=== PATIENT | female | born 1950 | race African-American/Black ===

== ENCOUNTER → 2019-05-29 | Day surgery (SDC) | payer MEDICARE ==
[2019-05-28 13:54] LABS: BASOPHILS % 0.6 % (0.0-1.0); EOSINOPHILS # (AUTO) 0.1 (0.0-0.4); EOSINOPHILS % 2.4 % (0.0-6.0); HEMOGLOBIN 12.5 g/dL (12.0-16.0); LYMPHOCYTES # (AUTO) 2.1 (1.0-3.2); LYMPHOCYTES % 42.2 % (18.0-39.1); MEAN CORPUSCULAR HGB CONC 32.1 g/dL (31-35); MEAN CORPUSCULAR VOLUME 93.5 fL (81-99); MONOCYTES # (AUTO) 0.4 (0.2-0.8); MONOCYTES % 7.1 % (4.4-11.3); NEUTROPHILS # (AUTO) 2.4 (2.1-6.9); NEUTROPHILS % 47.3 % (38.7-80.0); PLATELET COUNT 238 x10e3/uL (140-360); RED BLOOD COUNT 4.17 x10e6/uL (3.6-5.1); RED CELL DISTRIBUTION WIDTH 13.3 % (11.7-14.4)
[2019-05-28 14:18] LABS: ANION GAP 17.6 mmol/L (8-16); BLOOD UREA NITROGEN 14 mg/dL (7-26); BUN/CREATININE RATIO 16 (6-25); CALCIUM 9.6 mg/dL (8.4-10.2); CARBON DIOXIDE 23 mmol/L (22-29); CHLORIDE 103 mmol/L (98-107); CREATININE, SERUM 0.86 mg/dL (0.57-1.11); EST GLOMERULAR FILTRATION RATE > 60 ML/MIN (60-); GLUCOSE 109 mg/dL (74-118); POTASSIUM 3.6 mmol/L (3.5-5.1); SODIUM 140 mmol/L (136-145)
--- NOTE | 2019-05-28 15:14 | Diagnostic Imaging Report ---
EXAMINATION: CHEST 2 VIEWS INDICATION: Pre-operative COMPARISON: None FINDINGS: LINES/TUBES:None LUNGS:The lungs are well-inflated. No focal consolidation or pulmonary edema. PLEURA:No pleural effusion or pneumothorax. MEDIASTINUM:The cardiomediastinal silhouette appears normal in size and shape. BONES/SOFT TISSUES:No acute osseous injury. Degenerative changes of the thoracic spine. ABDOMEN:No free air under the diaphragm. IMPRESSION: No focal pneumonia or pulmonary edema. Signed by: Tameka Gaston MD on 05/28/2019 3:10 PM
[~2019-05-29] MED LIST: AMLODIPINE BESY10 MG PO; ATORVASTATIN CA10 MG PO; BUPIVACAINE HCL 0.5% INJ 30 ML VIAL INJ ONE; CEFAZOLIN SOD 1 GM/NS 50ML 100 ML IV ONE; DEXAMETHASONE SOD PHOS INJ 4 MG/ML VIAL ONE; DORZOLAMIDE HCL10 ML OP; ESMOLOL HCL 100MG/10ML 10 MG/ML VIAL ONE; FENTANYL CITRATE/PF 100MCG/2 ML INJ ONE; GABAPENTIN300 MG PO; HYDROCHLOROTHIA25 MG PO; LATANOPROST2.5 ML OP; LEVOTHYROXINE75 MCG PO; LIDOCAINE HCL 2% LOCAL INJ 5 ML SDV VIAL INJ ONE; LISINOPRIL10 MG PO; METFORMIN HCL500 MG PO; METOPROLOL TART25 MG PO; MIDAZOLAM HCL 2 MG/2 ML VIAL ONE; MONTELUKAST SOD10 MG PO; NYSTATIN100000 UNI TOP; ONDANSETRON HCL INJ 2MG/ML 2ML 2 MG/ML VIAL ONE; PANTOPRAZOLE SO40 MG PO; PROMETHAZINE HC25 M1 PO; PROPOFOL IV EMULSION 10 MG/ML 20 ML VIAL ONE; SEVOFLURANE INHAL SOLN 250 ML PEN BTL ONE; VENTOLIN HFA18 GM INH; XARELTO20 MG PO
--- OUTSIDE RECORDS SUMMARY | 2019-05-29 06:21 | XMS REPORT | Clinical Summary ---
Author Author [facility] Organization [facility] Address Unknown Phone Unavailable Care Team Providers Care Seconds Grader Name Role Phone Mila Mendoza MD PCP Unavailable Allergies No Known Allergies Medications End Date Status Medication Sig Dispensed Refills Start Date 05/31/2018 Discontinued cyclobenzaprine Take 1 tablet 20 tablet 0 (FLEXERIL) 10 mg tablet (10 mg total) 8 by mouth 2 (two) times a day as needed for muscle spasms for up to 30 days. 06/30/2018 ibuprofen (ADVIL,MOTRIN) Take 1 tablet 30 tablet 0 600 MG tablet (600 mg 8 total) by mouth every 6 (six) hours as needed for mild pain for up to 30 days. 06/05/2018 traMADol (ULTRAM) 50 mg Take 1 tablet 12 tablet 0 tablet (50 mg total) 8 by mouth every 6 (six) hours as needed for moderate pain for up to 5 days. Active Problems Not on file Encounters Care Team Description Date Type Specialty Mila Mendoza MD Screening breast examination (Primary Dx) 05/16/2019 Transcribe Access Orders Mila Mendoza MD Abnormal mammogram 06/15/2018 Hospital Radiology Encounter Mila Mendoza MD Abnormal mammogram 06/15/2018 Hospital Radiology Encounter Delio Sharma MD Chronic right-sided low back pain with right-sided sciatica (Primary Dx) 05/31/2018 Emergency Emergency Medicine after 05/28/2018 Family History Medical History Relation Name Comments Breast cancer Maternal Aunt Breast cancer Sister Relation Name Status Comments Maternal Aunt Sister Social History Date Tobacco Use Types Packs/Day Years Used Never Smoker Smokeless Tobacco: Never Used Sex Assigned at Date Recorded Not on file Industry Job Start Date Occupation Not on file Not on file Not on file Travel End Travel History Travel Start No recent travel history available. Last Filed Vital Signs Time Taken Vital Sign Reading 05/31/2018 1:50 PM CDT Blood Pressure 161/72 05/31/2018 1:50 PM CDT Pulse 64 05/31/2018 11:05 AM CDT Temperature 36.6 C (97.8 F) 05/31/2018 1:50 PM CDT Respiratory Rate 18 05/31/2018 1:50 PM CDT Oxygen Saturation 99% - Inhaled Oxygen - Concentration 05/31/2018 11:06 AM CDT Weight 90.7 kg (200 lb) 05/31/2018 11:06 AM CDT Height 162.6 cm (5' 4") 05/31/2018 11:06 AM CDT Body Mass Index 34.33 Plan of Treatment Care Team Description Date Type Specialty Mila Mendoza MD [address] [place] [address], [address] [place], [place] [id number] 06/04/2019 Procedure visit Radiology Health Maintenance Due Date Last Done Comments COLONOSCOPY SCREENING 2001 SHINGLES VACCINES (#1) 2001 65+ PNEUMOCOCCAL VACCINE 2016 (1 of 2 - PCV13) INFLUENZA VACCINE 05/30/2019 BREAST CANCER SCREENING 06/15/2020 06/15/2018, 06/15/2018, 06/15/2018, Additional history exists Procedures Comments Procedure Name Priority Date/Time Associated Diagnosis US BREAST COMPLETE LEFT Routine 06/15/2018 Abnormal mammogram 3:00 PM CDT MAMMO DIAGNOSTIC W CAD Routine 06/15/2018 Abnormal mammogram BILATERAL 2:44 PM CDT URINALYSIS SCREEN AND Routine 05/31/2018 MICROSCOPY, WITH REFLEX 12:21 PM CDT TO CULTURE URINE CULTURE Routine 05/31/2018 12:21 PM CDT XR HIP 2-3 VIEWS RIGHT STAT 05/31/2018 12:04 PM CDT after 05/28/2018 Results * US Breast Complete Left (06/15/2018 3:00 PM CDT) Specimen Narrative Performed At PROCEDURE: MAMMO DIAGNOSTIC W CAD BILATERAL, US BREAST COMPLETE [facility] LEFT06/15/2018 2:12 PM This patient's mammogram was interpreted with the assistance of computer-aided detection (CAD). CLINICAL HISTORY:68-year-old female with history of benign left breast surgical excisional biopsy performed in 2016. Patient is being followed for a probably benign mass versus complex cyst within the left breast near excisional biopsy site. COMPARISON:06/20/2017 through 09/17/2013. BREAST DENSITY:There are scattered areas of fibroglandular density. DIGITAL DIAGNOSTIC MAMMOGRAPHY: There are no dominant masses, suspicious microcalcifications or unexplained architectural distortion to suggest malignancy. Changes compatible with surgical excisional biopsy are located within the upper outer left breast at posterior depth. BREAST ULTRASOUND: Complete left breast sonogram, to include scanning of all 4 quadrants, the retroareolar/subareolar region, and axilla was performed by the technologist with close supervision by the radiologist. Sonographic evaluation of the left breast demonstrates a stable hypoechoic mass within the upper outer quadrant, 10 cm from the nipple, measuring up to 0.4 x 0.3 x 0.3 cm. This remains unchanged since 06/20/2017, and will remain classified as probably benign. Remaining left breast and imaged contents within the left axilla are within normal limits. IMPRESSION: BI-RADS Category 3-Probably Benign Findings. 1.Stable probably benign subcentimeter complex cyst versus oval mass near excisional biopsy site, left breast. This is only seen on ultrasound. 2.No mammographic evidence for malignancy within either breast. RECOMMENDATION: Twelve-month follow up is recommended. Patient will be due for bilateral diagnostic mammogram and left breast sonogram in one year. The results of this exam have been sent to the patient. This facility is accredited by [employer] for Mammography. A negative x-ray report should not delay biopsy if a dominant or clinically suspicious mass is present. Not all cancers are identified by x-ray. [id number] Performing Organization Address City/State/Zipcode Phone Number [facility] [address] [place] [address] * Mammo Diagnostic w Cad Bilateral (06/15/2018 2:44 PM CDT) Specimen Narrative Performed At PROCEDURE: MAMMO DIAGNOSTIC W CAD BILATERAL, US BREAST COMPLETE [facility] LEFT06/15/2018 2:12 PM This patient's mammogram was interpreted with the assistance of computer-aided detection (CAD). CLINICAL HISTORY:68-year-old female with history of benign left breast surgical excisional biopsy performed in 2016. Patient is being followed for a probably benign mass versus complex cyst within the left breast near excisional biopsy site. COMPARISON:06/20/2017 through 09/17/2013. BREAST DENSITY:There are scattered areas of fibroglandular density. DIGITAL DIAGNOSTIC MAMMOGRAPHY: There are no dominant masses, suspicious microcalcifications or unexplained architectural distortion to suggest malignancy. Changes compatible with surgical excisional biopsy are located within the upper outer left breast at posterior depth. BREAST ULTRASOUND: Complete left breast sonogram, to include scanning of all 4 quadrants, the retroareolar/subareolar region, and axilla was performed by the technologist with close supervision by the radiologist. Sonographic evaluation of the left breast demonstrates a stable hypoechoic mass within the upper outer quadrant, 10 cm from the nipple, measuring up to 0.4 x 0.3 x 0.3 cm. This remains unchanged since 06/20/2017, and will remain classified as probably benign. Remaining left breast and imaged contents within the left axilla are within normal limits. IMPRESSION: BI-RADS Category 3-Probably Benign Findings. 1.Stable probably benign subcentimeter complex cyst versus oval mass near excisional biopsy site, left breast. This is only seen on ultrasound. 2.No mammographic evidence for malignancy within either breast. RECOMMENDATION: Twelve-month follow up is recommended. Patient will be due for bilateral diagnostic mammogram and left breast sonogram in one year. The results of this exam have been sent to the patient. This facility is accredited by [employer] for Mammography. A negative x-ray report should not delay biopsy if a dominant or clinically suspicious mass is present. Not all cancers are identified by x-ray. [id number] Performing Organization Address City/State/Zipcode Phone Number [facility] [address] [place] [address] * Urinalysis screen and microscopy, with reflex to culture (05/31/2018 12:21 PM CDT) Specimen site Clean catch [facility]OM[facility]IC[facility] Color, UA Yellow [facility] OF [facility]OLOGY AND GENOMIC MEDICINE Appearance, UA Clear [facility] OF [facility]OLOGY AND GENOMIC MEDICINE Specific 1.019 1.001 - 1.035 [facility] gravity, OF PATHOLOGY AND GENOMIC MEDICINE pH, UA 5.0 5.0 - 8.5 [facility] OF PATHOLOGY AND GENOMIC MEDICINE Protein, UA Negative Negative [facility] OF [facility]OLOGY AND GENOMIC MEDICINE Glucose, UA Negative Negative [facility] OF [facility]OLOGY AND GENOMIC MEDICINE Ketones, UA Negative Negative [facility] OF [facility]OLOGY AND GENOMIC MEDICINE Bilirubin, UA Negative Negative [facility] OF [facility]OLOGY AND GENOMIC MEDICINE Blood, UA Negative Negative [facility] OF [facility]OLOGY AND GENOMIC MEDICINE Nitrite, UA Negative Negative [facility] OF [facility]OLOGY AND GENOMIC MEDICINE Urobilinogen, 2.0 (A) <2.0 [facility] UA OF PATHOLOGY AND GENOMIC MEDICINE Leukocyte Negative Negative [facility] esterase, [facility] OF PATHOLOGY AND GENOMIC MEDICINE Epithelial Moderate /HPF [facility] cells, [facility]A OF PATHOLOGY AND GENOMIC MEDICINE WBC, UA 2 0 - 5 /HPF [facility] OF PATHOLOGY AND GENOMIC MEDICINE RBC, UA 2 0 - 5 /HPF [facility] OF PATHOLOGY AND GENOMIC MEDICINE Bacteria, UA None seen None seen [facility] OF PATHOLOGY AND GENOMIC MEDICINE Yeast, UA None seen [facility] OF PATHOLOGY AND GENOMIC MEDICINE Yeast with None seen [facility] pseudohyphae, OF PATHOLOGY UA AND GENOMIC MEDICINE Specimen Urine Performing Organization Address City/[facility] Phone Number [facility] [address] [place] [address] PATHOLOGY AND GENOMIC MEDICINE * Urine culture (05/31/2018 12:21 PM CDT) Urine culture SEE COMMENTComment: [facility] Bacteriuria screen negative. OF PATHOLOGY AND GENOMIC MEDICINE Specimen Urine Performing Organization Address City/[facility] Phone Number [facility] [address] [place] [address] PATHOLOGY AND GENOMIC MEDICINE * XR Hip 2-3 View Right (05/31/2018 12:04 PM CDT) Specimen Narrative Performed At EXAMINATION:XR HIP 2-3 VIEWS RIGHT [facility] CLINICAL HISTORY: hip pain COMPARISON:None. FINDINGS: No acute osseous abnormality is seen. IMPRESSION: As above [facility]-[id number] Procedure Note Interface, Radiology Results Incoming - 05/31/2018 12:22 PM CDT EXAMINATION: XR HIP 2-3 VIEWS RIGHT CLINICAL HISTORY: hip pain COMPARISON: None. FINDINGS: No acute osseous abnormality is seen. IMPRESSION: As above [facility]-[id number] Performing Organization Address City/[facility]/Zipcode Phone Number [facility] [address] [place] [address] after 05/28/2018 Insurance Type Payer Benefit Subscriber ID Effective Phone Address Plan / Dates Group HMO [employer] CIGNA xxxxxxxx [id number] HEALTHSPRI resent NG HMO MCR ADV Medicaid MEDICAID MEDICAID xxxxxxxxx [id number] resent Advance Directives Patient has advance care planning documents on file. For more information, princess huggins contact: Michael Moreira [address] [place] [address]
--- OUTSIDE RECORDS SUMMARY | 2019-05-29 06:21 | XMS REPORT ---
Author Author Admin, [place] [facility] [place] Address Unknown Phone Unavailable Allergies, Adverse Reactions, Alerts Allergy Name Reaction Description Start Date Severity Status Provider BUTORPHANOL TARTRATE Weakness Critical Active Tia Mittal MD Conditions or Problems Problem Name Problem Code Onset Date Status Entry Date Provider Comment Standard Description Annotate Colon Cancer Screening V76.51 Active Marlin Grady Weinerani DO Screening for malignant neoplasms of colon DYSURIA 788.1 Active Rose Marie Garrett MD Dysuria Needs vaccination for influenza V04.81 Active Marlin Grady Blankenship DO Need for prophylactic vaccination and inoculation against influenza Leg cramps, bilateral 729.82 Active Corky Springer MD Cramp of limb Carpal tunnel syndrome 354.0 Active Fracisco Stewart MD Carpal tunnel syndrome Localized, 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 Fitzgerald Anticoagulation therapy V58.61 Active Marlin Blankenship DO Long-term (current) use of anticoagulants Xereolto Need for prophylactic vaccination against streptococcus pneumoniae (Pneumococcus) V03.82 Active Marlin Blankenship DO Need for prophylactic vaccination against Streptococcus pneumoniae [pneumococcus] Atrial fibrillation 427.31 Active Marlin Blankenship DO Atrial fibrillation Cards: Dr. Jimenes Back pain, chronic 724.5 Active Marlin Blankenship DO Backache, unspecified s/p burn on back Diabetes mellitus, type II 250.00 Active Tia Mittal MD Diabetes mellitus without mention of complication, type II or unspecified type, not stated as uncontrolled GERD 530.81 Active Marlin Blankenship DO Esophageal reflux hx of hital hernia Hyperlipidemia 272.4 Active Tia Mittal MD Other and unspecified hyperlipidemia Hypertension, benign essential 401.1 Active Tia Mittal MD Benign essential hypertension Hypothyroidism 244.9 Active Tia Mittal MD Unspecified hypothyroidism Obesity Active Tia Mittal MD Obesity, unspecified Asthma 493.90 Active Marlin Grady Pariani DO Asthma, unspecified BMI 36.0-36.9 Inactive Marlin Grady Pariani DO Intramuscular hematoma ICD-924.9 Inactive Marlin Grady Pariani DO Bruise ICD-924.9 Inactive Marlin Grady Pariani DO Diarrhea, acute ICD-787.91 Inactive Marlin Grady Pariani DO Anemia ICD-285.9 Inactive Marlin Grady Pariani DO Acute bronchitis ICD-466.0 Inactive Marlin Grady Pariani DO Elevated creatinine ICD-790.4 Inactive Marlin Grady Pariani DO Glaucoma 365.9 Inactive Tia Mittal MD Unspecified glaucoma BMI 36.0-36.9 Resolved Marlin Grady Pariani DO Body Mass Index 36.0-36.9, adult Intramuscular hematoma 924.9 Resolved Marlin Grady Pariani DO Contusion of unspecified site right upper back Bruise 924.9 Resolved Marlin Grady Pariani DO Contusion of unspecified site Diarrhea, acute 787.91 Resolved Marlin Grady Pariani DO Diarrhea Skin rash 782.1 Resolved Marlin Grady Pariani DO Rash and other nonspecific skin eruption Anemia 285.9 Resolved Marlin Grady Pariani DO Anemia, unspecified Acute bronchitis 466.0 Resolved Marlin Blankenship DO Acute bronchitis Elevated creatinine 790.4 Resolved Marlin Blankenship DO Nonspecific elevation of levels of transaminase or lactic acid dehydrogenase [LDH] Need for prophylactic vaccination against streptococcus pneumoniae (Pneumococcus) V03.82 Resolved Marlin Blankenship DO Need for prophylactic vaccination against Streptococcus pneumoniae [pneumococcus] Medication List Medication Instructions Start Date Stop Date Generic Name NDC Status Provider Patient Instruction PANTOPRAZOLE SODIUM 20 MG ORAL TABLET DELAYED RELEASE take 1 tab By Mouth Every day for reflux PANTOPRAZOLE SODIUM 30437300112 Active Alyson Rubalcava MD Active VALSARTAN 320 MG ORAL TABLET take 1 tab By Mouth Every day for blood pressure VALSARTAN 31972855060 Active Marlin Gradycolby Blankenship DO Active ACCU-CHEK FASTCLIX LANCETS Please dispense lancets of choice. Check blood glucose Twice a Day LANCETS 59234637061 Active Jagruti Sanchez CPHT Active TRAMADOL HCL 50 MG ORAL TABLET 1-2 tablets by mouth 4 times a day as needed for pain TRAMADOL HCL 85658922491 Active Marlin Blankenship DO Active LORATADINE 10 MG ORAL CAPSULE take 1 tab By Mouth Every day As Needed rash LORATADINE 03228110452 Active Alyson Rubalcava MD Active NYSTATIN 581622 UNIT/GM EXTERNAL POWDER apply to affected area Twice a Day-Three Times a Day NYSTATIN 26136681840 Active Marlin Blankenship DO Active SINGULAIR 10 MG ORAL TABLET take 1 tab By Mouth Every day MONTELUKAST SODIUM 20571912609 Active Marlinlázaro Blankenship DO Active ACCU-CHEK STEFANI PLUS IN VITRO STRIP check blood glucose bid GLUCOSE BLOOD 26243490809 Active Jagruti Sanchez CPHT Active AMLODIPINE BESYLATE 10 MG ORAL TABLET take 1 tab By Mouth Every day for blood pressure AMLODIPINE BESYLATE 22427776747 Active Alyson Rubalcava MD Active LISINOPRIL 40 MG ORAL TABLET take 1 tab By Mouth Every day for blood pressure LISINOPRIL 83606739049 Active Alyson Rubalcava MD Active METFORMIN HCL 1000 MG ORAL TABLET take 1 tab By Mouth bid METFORMIN HCL 50398502246 Active Alyson Rubalcava MD Active XARELTO 20 MG ORAL TABLET take 1 tab By Mouth Every day RIVAROXABAN 82166557376 Active Alyson Rubalcava MD Active ADVAIR DISKUS 100-50 MCG/DOSE INHALATION AEROSOL POWDER BREATH ACTIVATED 1 inh bid FLUTICASONE-SALMETEROL 87958530999 Active Marlin Blankenship DO Active ALBUTEROL SULFATE (2.5 MG/3ML) 0.083% INHALATION NEBULIZATION SOLUTION use Three Times a Day As Needed sob ALBUTEROL SULFATE 22559996498 Active Marlin Blankenship DO Active AERONEB GO COMPLETE SYSTEM use As Needed NEBULIZERS 08681948717 Active Marlin Blankenship DO Active AMIODARONE HCL 100 MG ORAL TABLET take 1 tab By Mouth Every day AMIODARONE HCL 40482225163 Active Alyson Rubalcava MD Active ATORVASTATIN CALCIUM 40 MG ORAL TABLET one tablet By Mouth at bedtime ATORVASTATIN CALCIUM 25434654994 Active Alyson Rubalcava MD Active BLOOD PRESSURE UNIT check your bp as prescribed BLOOD PRESSURE MONITORING 61762497148 Active Marlin Blankenship DO Active DORZOLAMIDE HCL 2 % OPHTHALMIC SOLUTION one drop in both DORZOLAMIDE HCL 82489203971 Active Marlin Blankenship DO Active FAMOTIDINE 20 MG ORAL TABLET take 1 tab By Mouth Every day As Needed refulx FAMOTIDINE 00364605251 Active Marlin Blankenship DO Active GABAPENTIN 100 MG ORAL CAPSULE 2 by mouth three times a day GABAPENTIN 49009849036 Active Marlin Blankenship DO Active HYDROCHLOROTHIAZIDE 25 MG ORAL TABLET 1 by mouth every day HYDROCHLOROTHIAZIDE 12729451709 Active Marlin Blankenship DO Active LATANOPROST 0.005 % OPHTHALMIC SOLUTION 1 drop in both eyes LATANOPROST 41435635490 Active Marlin Blankenship DO Active LEVOTHYROXINE SODIUM 75 MCG ORAL TABLET 1 tablet by mouth daily LEVOTHYROXINE SODIUM 91726444343 Active Alyson Rubalcava MD Active METOPROLOL TARTRATE 25 MG ORAL TABLET take 1 tab By Mouth bid METOPROLOL TARTRATE 43401100216 Active Alyson Rubalcava MD Active PROMETHAZINE HCL 25 MG ORAL TABLET 1 by mouth every 6 hours as needed for nausea or emesis PROMETHAZINE HCL 33729770851 Active Alyson Rubalcava MD Active VENTOLIN HFA 108 (90 BASE) MCG/ACT INHALATION AEROSOL SOLUTION 2 puffs Every 6 -8 hours As Needed for SOB ALBUTEROL SULFATE 29783347936 Active Alyson Rubalcava MD Active HYDROCORTISONE 1 % EXTERNAL CREAM apply to affected area twice a day HYDROCORTISONE 1 % EXTERNAL CREAM 417654 HYDROCORTISONE Inactive PREDNISONE 20 MG ORAL TABLET 1 ta b By Mouth Every Day PREDNISONE 20 MG ORAL TABLET 279181 PREDNISONE Inactive BACTRIM DS 800-160 MG ORAL TABLET 1 tab by mouth twice a day BACTRIM DS 800-160 MG ORAL TABLET 619389 TRIMETHOPRIM-SULFAMETHOXAZOLE Inactive SARANYA WRIST BRACE/SPLINT use daily as directed SARANYA WRIST BRACE/SPLINT ELASTIC BANDAGES & SUPPORTS Inactive MAGNESIUM OXIDE 400 MG ORAL TABLET 1 by mouth twice a day MAGNESIUM OXIDE 400 MG ORAL TABLET 491834 MAGNESIUM OXIDE Inactive QUINIDINE SULFATE 300 MG ORAL TABLET take one tab By Mouth Every Day QUINIDINE SULFATE 300 MG ORAL TABLET 764233 QUINIDINE SULFATE Inactive ESTRACE 0.1 MG/GM VAGINAL CREAM insert 0.5 g PV 2 X's/wk ESTRACE 0.1 MG/GM VAGINAL CREAM 701791 ESTRADIOL Inactive AUGMENTIN 500-125 MG ORAL TABLET take 1 tab By Mouth Twice a Day X 5-7 days AUGMENTIN 500-125 MG ORAL TABLET 537700 AMOXICILLIN-POT CLAVULANATE Inactive PREDNISONE 20 MG ORAL TABLET take 1 tab By Mouth Every day X 5 days PREDNISONE 20 MG ORAL TABLET 753795 PREDNISONE Inactive GUAIFENESIN-CODEINE 100-10 MG/5ML ORAL SOLUTION take 10 ml By Mouth Every 4-6 hrs As Needed cough GUAIFENESIN-CODEINE 100-10 MG/5ML ORAL SOLUTION 735187 GUAIFENESIN-CODEINE Inactive ALAWAY 0.025 % OPHTHALMIC SOLUTION 1 drop in both eyes ALAWAY 0.025 % OPHTHALMIC SOLUTION 888711 KETOTIFEN FUMARATE Inactive CALLUS REMOVERS 40 % EXTERNAL PAD apply to skin at bedtime CALLUS REMOVERS 40 % EXTERNAL PAD SALICYLIC ACID Inactive JANUVIA 50 MG ORAL TABLET take 1 tab By Mouth Every day JANUVIA 50 MG ORAL TABLET SITAGLIPTIN PHOSPHATE Inactive LISINOPRIL 40 MG ORAL TABLET 1 by mouth every day LISINOPRIL 40 MG ORAL TABLET 829432 LISINOPRIL Inactive TRAMADOL HCL 50 MG ORAL TABLET 1-2 tablets by mouth 4 times a day as needed for pain TRAMADOL HCL 50 MG ORAL TABLET 200628 TRAMADOL HCL Inactive HYDROCORTISONE 1 % EXTERNAL CREAM apply to affected area twice a day HYDROCORTISONE 70329768177 No Longer Active Marlin Grady Blankenship DO Active PREDNISONE 20 MG ORAL TABLET 1 ta b By Mouth Every Day PREDNISONE 24042785970 No Longer Active Shaina Lundberg MD Active BACTRIM DS 800-160 MG ORAL TABLET 1 tab by mouth twice a day TRIMETHOPRIM-SULFAMETHOXAZOLE 25667064283 No Longer Active Marlin Grady Blankenship DO Active SARANYA WRIST BRACE/SPLINT use daily as directed ELASTIC BANDAGES & SUPPORTS 94160372997 No Longer Active Marlin Grady Pariivette DO Active MAGNESIUM OXIDE 400 MG ORAL TABLET 1 by mouth twice a day MAGNESIUM OXIDE 27523918893 No Longer Active Marlin Grady Pariani DO Active QUINIDINE SULFATE 300 MG ORAL TABLET take one tab By Mouth Every Day QUINIDINE SULFATE 78945123936 No Longer Active Corky Springer MD Active ESTRACE 0.1 MG/GM VAGINAL CREAM insert 0.5 g PV 2 X's/wk ESTRADIOL 74328758845 No Longer Active Marlin Grady Pariani DO Active AUGMENTIN 500-125 MG ORAL TABLET take 1 tab By Mouth Twice a Day X 5-7 days AMOXICILLIN-POT CLAVULANATE 92573647447 No Longer Active Marlin Grady Pariani DO Active MOXIFLOXACIN HCL 400 MG ORAL TABLET take 1 tab By Mouth Every day X 5 days MOXIFLOXACIN HCL 99207848250 No Longer Active Marlin Grady Pariani DO Active PREDNISONE 20 MG ORAL TABLET take 1 tab By Mouth Every day X 5 days PREDNISONE 94848441606 No Longer Active Marlin Grady Pariani DO Active VALSARTAN 320 MG ORAL TABLET take 1 tab By Mouth Every day VALSARTAN 31842338425 No Longer Active Mralin Grady Pariani DO Active GUAIFENESIN-CODEINE 100-10 MG/5ML ORAL SOLUTION take 10 ml By Mouth Every 4-6 hrs As Needed cough GUAIFENESIN-CODEINE 52255984973 No Longer Active Marlin Grady Weinerani DO Active ALAWAY 0.025 % OPHTHALMIC SOLUTION 1 drop in both eyes KETOTIFEN FUMARATE 98137213413 No Longer Active Marlin Grady Pariani DO Active CALLUS REMOVERS 40 % EXTERNAL PAD apply to skin at bedtime SALICYLIC ACID 73672243022 No Longer Active Marlin Grady Weinerani DO Active JANUVIA 50 MG ORAL TABLET take 1 tab By Mouth Every day SITAGLIPTIN PHOSPHATE 42393091218 No Longer Active Marlin Grady Pariani DO Active LISINOPRIL 40 MG ORAL TABLET 1 by mouth every day LISINOPRIL 60206238961 No Longer Active Marlin Grady Pariani DO Active METFORMIN HCL 500 MG ORAL TABLET 1 by mouth twice a day METFORMIN HCL 76207465550 No Longer Active Olga RIOS Active PANTOPRAZOLE SODIUM 40 MG ORAL TABLET DELAYED RELEASE one tablet By Mouth daily PANTOPRAZOLE SODIUM 96962119375 No Longer Active Tia Mittal MD Active TRAMADOL HCL 50 MG ORAL TABLET 1-2 tablets by mouth 4 times a day as needed for pain TRAMADOL HCL 02578930175 No Longer Active Marlin Blankenship DO Active Immunizations Vaccine Administration Date Value Standard Description influenza immunization (Flu Vax) has been administered given influenza virus vaccine, unspecified formulation pneumococcal immunization administered given pneumococcal polysaccharide vaccine, 23 valent Vital Signs Date Name Value Unit Range Description blood pressure, diastolic 60 mm[Hg] BP leone blood pressure, systolic 107 mm[Hg] BP sys height E&M 63 [in_us] Bdy height pulse rate E&M 63 /min Heart rate respiratory rate E&M 18 /min Resp rate temperature E&M 98.7 [degF] Body temperature weight E&M 210 [lb_av] Weight Measured blood pressure, diastolic 90 mm[Hg] BP leone blood pressure, systolic 127 mm[Hg] BP sys height E&M 63 [in_us] Bdy height pulse rate E&M 57 /min Heart rate respiratory rate E&M 18 /min Resp rate temperature E&M 97.9 [degF] Body temperature weight E&M 215.60 [lb_av] Weight Measured blood pressure, diastolic 86 mm[Hg] BP leone blood pressure, systolic 154 mm[Hg] BP sys height E&M 63 [in_us] Bdy height pulse rate E&M 79 /min Heart rate respiratory rate E&M 18 /min Resp rate temperature E&M 99.0 [degF] Body temperature weight E&M 214 [lb_av] Weight Measured blood pressure, diastolic 87 mm[Hg] BP leone blood pressure, systolic 151 mm[Hg] BP sys height E&M 63 [in_us] Bdy height pulse rate E&M 65 /min Heart rate respiratory rate E&M 18 /min Resp rate temperature E&M 98.3 [degF] Body temperature weight E&M 202.50 [lb_av] Weight Measured Diagnostic Results Date Name Value Unit Range Description Office Visit: Adult Followup Rm 2 Pariani - Urinalysis pH, urine, semiquantitative 5.0 Lab Report: CBC With Differential/Platelet, Comp. Metabolic Panel (14), ... - Hematology lymphocyte count, blood, automated 1.4 X10E3/UL 10*3/mm3 0.7-3.1 Office Visit: Adult Followup Rm 2 Pariani - Urinalysis bilirubin, urine negative Lab Report: CBC With Differential/Platelet, Comp. Metabolic Panel (14), ... - Chemistry urea nitrogen, blood 14 mg/dL 8-27 creatinine, serum 0.89 mg/dL 0.57-1.00 chloride, serum 101 mmol/L 96-106 Lab Report: CBC With Differential/Platelet, Comp. Metabolic Panel (14), ... - Hematology mean corpuscular volume, RBC 95 fL 79-97 Lab Report: CBC With Differential/Platelet, Comp. Metabolic Panel (14), ... - Chemistry triglyceride, serum, fasting 140 mg/dL 0-149 Lab Report: CBC With Differential/Platelet, Comp. Metabolic Panel (14), ... - Hematology erythrocyte (RBC) count 3.93 X10E6/UL 10*6/mm3 3.77-5.28 Lab Report: CBC With Differential/Platelet, Comp. Metabolic Panel (14), ... - Chemistry Estimated Glomerular Filtration Rate (calc) 68 mL/min/1.73m2 >59 Office Visit: Adult Followup Rm 2 Pariani - Urinalysis appearance, urine clear Lab Report: CBC With Differential/Platelet, Comp. Metabolic Panel (14), ... - Hematology platelet count 237 X10E3/UL 10*3/mm3 464-042 7771/04/04 red blood cell distribution width 13.7 % 12.3-15.4 Lab Report: CBC With Differential/Platelet, Comp. Metabolic Panel (14), ... - Chemistry protein, total, serum 6.9 g/dL 6.0-8.5 HDL cholesterol, serum 69 mg/dL >39 Office Visit: Adult Followup Rm 2 Pariani - Urinalysis glucose, urine, semiquantitative negative Lab Report: CBC With Differential/Platelet, Comp. Metabolic Panel (14), ... - Chemistry albumin/globulin ratio, serum 2.0 1.2-2.2 Lab Report: CBC With Differential/Platelet, Comp. Metabolic Panel (14), ... - Hematology eosinophils as percent of blood leukocytes 7 % Not Estab. Lab Report: CBC With Differential/Platelet, Comp. Metabolic Panel (14), ... - Chemistry Absolute Neutrophils 1.6 X10E3/UL 10*3/uL 1.4-7.0 microalbumin/creatinine ratio, urine 20.0 MG/G CREAT ug/mg 0.0-30.0 Lab Report: CBC With Differential/Platelet, Comp. Metabolic Panel (14), ... - Hematology basophil count, absolute 0.0 x10E3/uL 0.0-0.2 Lab Report: CBC With Differential/Platelet, Comp. Metabolic Panel (14), ... - Chemistry alanine aminotransferase (SGPT), serum 29 U/L 0-32 LDL cholesterol, serum 61 mg/dL 0-99 Office Visit: Adult Followup Rm 2 [facility] - Urinalysis nitrite, urine, semiquantitative negative Lab Report: CBC With Differential/Platelet, Comp. Metabolic Panel (14), ... - Hematology monocytes as percent of blood leukocytes 10 % Not Estab. Lab Report: Chlamydia/GC Amplification, Urine Culture, Routine, Result - Urinalysis urine culture Citrobacter koseri Lab Report: CBC With Differential/Platelet, Comp. Metabolic Panel (14), ... - Chemistry cholesterol, serum 158 mg/dL 100-199 Lab Report: CBC With Differential/Platelet, Comp. Metabolic Panel (14), ... - Hematology mean corpuscular hemoglobin concentration, RBC 32.7 G/DL % 31.5-35.7 Office Visit: Adult Followup 2 [facility] - Urinalysis leukocyte esterase, urine, by dipstick negative Lab Report: CBC With Differential/Platelet, Comp. Metabolic Panel (14), ... - Hematology hemoglobin, blood 12.2 g/dL 11.1-15.9 leukocyte count, blood 3.7 X10E3/UL 10*3/mm3 3.4-10.8 Office Visit: Adult Followup 2 [facility] - Urinalysis protein, urine, semiquantitative (dipstick) negative Lab Report: CBC With Differential/Platelet, Comp. Metabolic Panel (14), ... - Hematology hematocrit, blood 37.3 % 34.0-46.6 Lab Report: CBC With Differential/Platelet, Comp. Metabolic Panel (14), ... - Chemistry globulin, serum 2.3 1.5-4.5 thyroid stimulating hormone, serum 1.670 u[iU]/mL 0.450-4.500 albumin, serum 4.6 g/dL 3.6-4.8 Internal Correspondence: Pre-Visit Planning - Other List of providers caring for patient Ayde Mederos and Roseline Berg Lab Report: CBC With Differential/Platelet, Comp. Metabolic Panel (14), ... - Chemistry very low density lipoproteins 28 mg/dL 5-40 Office Visit: Adult Followup 2 [facility] - Urinalysis urobilinogen, urine, semiquantitative (dipstick) 0.2 Lab Report: CBC With Differential/Platelet, Comp. Metabolic Panel (14), ... - Chemistry calcium, serum 10.0 mg/dL 8.7-10.3 Lab Report: CBC With Differential/Platelet, Comp. Metabolic Panel (14), ... - Hematology basophils as percent of blood leukocytes 1 % Not Estab. Lab Report: CBC With Differential/Platelet, Comp. Metabolic Panel (14), ... - Urinalysis microalbumin/total urine volume 33.5 mg/L Not Estab. Lab Report: CBC With Differential/Platelet, Comp. Metabolic Panel (14), ... - Hematology monocyte count, blood, automated 0.4 X10E3/UL 10*3/uL 0.1-0.9 Internal Correspondence: Pre-Visit Planning - CC care steamfitter supervisor #1, name Abigail Perez Lab Report: CBC With Differential/Platelet, Comp. Metabolic Panel (14), ... - Chemistry immature granulocytes, percentage of total cells, blood 0 % Not Estab. urea nitrogen/creatinine ratio, serum 16 12-28 Lab Report: CBC With Differential/Platelet, Comp. Metabolic Panel (14), ... - Genetics/fertility eGFR if 78 mL/min/1.73m2 >59 Lab Report: CBC With Differential/Platelet, Comp. Metabolic Panel (14), ... - Hematology lymphocytes as percent of blood leukocytes 38 % Not Estab. Lab Report: CBC With Differential/Platelet, Comp. Metabolic Panel (14), ... - Chemistry carbon dioxide, venous blood 22 mmol/L 18-29 Lab Report: Chlamydia/GC Amplification, Urine Culture, Routine, Result - Lab chlamydia DNA probe Negative Negative Lab Report: Chlamydia/GC Amplification, Urine Culture, Routine, Result - Microbiology Neisseria gonorrhoeae DNA probe Negative Negative Lab Report: CBC With Differential/Platelet, Comp. Metabolic Panel (14), ... - Chemistry sodium, serum 140 mmol/L 134-144 Lab Report: CBC With Differential/Platelet, Comp. Metabolic Panel (14), ... - Hematology activated partial thromboplastin time (aPTT) 31.0 s Units converted. See lab report for original value. Lab Report: CBC With Differential/Platelet, Comp. Metabolic Panel (14), ... - Chemistry hemoglobin A1C, blood, as % of total hemoglobin 7.3 % 4.8-5.6 alkaline phosphatase, serum 72 U/L 39-117 magnesium, serum 1.6 mg/dL 1.6-2.3 Office Visit: Adult Followup Rm 2 [facility] - Urinalysis ketones, urine, by test strip negative Lab Report: CBC With Differential/Platelet, Comp. Metabolic Panel (14), ... - Hematology Eosinophil Absolute Count 0.2 X10E3/UL 10*3/uL 0.0-0.4 Lab Report: CBC With Differential/Platelet, Comp. Metabolic Panel (14), ... - Coagulation prothrombin time (patient) 11.1 s 9.1-12.0 Office Visit: Adult Followup Rm 2 [facility] - Urinalysis specific gravity, urine 1.015 Lab Report: CBC With Differential/Platelet, Comp. Metabolic Panel (14), ... - Hematology mean corpuscular hemoglobin, RBC 31.0 pg 26.6-33.0 Lab Report: CBC With Differential/Platelet, Comp. Metabolic Panel (14), ... - Chemistry creatinine, random, urine 167.7 mg/dL Not Estab. bilirubin, serum, total 0.7 mg/dL 0.0-1.2 Lab Report: CBC With Differential/Platelet, Comp. Metabolic Panel (14), ... - Hematology neutrophils as percent of blood leukocytes 44 % Not Estab. [facility]: [facility] blood in urine (hemoglobin) by dipstick negative Lab Report: CBC With Differential/Platelet, Comp. Metabolic Panel (14), ... - Coagulation international normalized ratio (INR) 1.1 0.8-1.2 Lab Report: CBC With Differential/Platelet, Comp. Metabolic Panel (14), ... - Chemistry blood glucose, random 117 mg/dL 65-99 potassium, serum 5.0 mmol/L 3.5-5.2 aspartate aminotransferase (SGOT), serum 19 U/L 0-40 Office Visit: Adult Followup Rm 2 [facility] - Urinalysis urine color yellow Encounters Date Encounter Provider Code Facility 11:30:09 CDT Est Patient [id number] Marlin Grady Pariani DO CPT-[id number] [facility] 11:30:09 CDT Est Patient Detailed - [id number] Marlin Grady Pariani DO CPT-26537 [facility] 10:08:52 CDT Est Patient Exp Problem - [id number] Shaina Lundberg MD CPT-44802 [facility] 11:26:41 DRAW OFF WORKER Est Patient Exp Problem - 61911 Rose Marie Garrett MD CPT-48638 [facility] 19:38:29 CDT Est Patient Detailed - 25570 Marlin Grady Pariani DO CPT-15497 [facility] 16:42:23 CDT Est Patient Exp Problem - 47607 Corky Springer MD CPT-41680 [facility] 10:44:45 CDT Est Patient Exp Problem - 64820 Olga Monteiro [facility] CPT-07008 [facility] 10:27:26 CDT Est Patient Exp Problem - 06724 Fracisco Stewart MD CPT-98822 [facility] 17:49:48 CDT Est Patient Exp Problem - 94838 Marlin Grady Pariani DO CPT-50837 [facility] 17:20:18 CDT Est Patient Detailed - [id number] Marlin Grady Pariani DO CPT-88276 [facility] 20:49:57 CDT Est Patient Detailed - 19791 Marlin Grady Pariani DO CPT-30701 [facility] 23:46:41 DRAW OFF WORKER Est Patient Detailed - 41341 Marlin Grady Pariani DO CPT-78835 [facility] 21:19:29 DRAW OFF WORKER Ofc Vst, New Level IV Marlin Grady Pariani DO CPT-00030 [facility] 14:39:22 DRAW OFF WORKER Est Patient Exp Problem - 07699 Olga Monteiro [facility] CPT-55252 [facility] 13:01:31 CDT New Patient Detailed - [id number] Tia Mittal MD CPT-84193 [facility] Procedures Code Procedure Name Date Entry Date Standard Description CPT-04250 Urinalysis - Dip only - In House 11:30:09 CDT CPT-00791 Urinalysis - Dip only - In House 11:10:52 DRAW OFF WORKER CPT-89094 INFLUENZA VACCINE QUADRIVALENT 3 YRS PLUS IM 12:29:35 CDT CPT-82970 Admin of Vaccine - Injection - 1 12:29:35 CDT
--- OUTSIDE RECORDS SUMMARY | 2019-05-29 06:21 | XMS REPORT ---
Author Author [facility] Address Unknown Phone Unavailable Care Team Providers Care Technical Developer Name Role Phone ELIDA MEZA Unavailable Unavailable Problems This patient has no known problems. Allergies, Adverse Reactions, Alerts This patient has no known allergies or adverse reactions. Medications This patient has no known medications. Results Test Description Test Time Test Comments Text Results Atomic Results Result Comments CHEST 2 VIEWS 2019-05-28 15:09:00 [place] [address] Patient Name: JUANITO GUERRA MR #: [id number] : 1950 Age/Sex: 69/F Req #: [id number] [facility] Physician: Ordered by: ELIDA MEZA MD Report #: [id number] Location: OR Room/Bed: Procedure: [id number] DX/CHEST 2 VIEWS Exam Date: 05/28/19 Exam Time: 1407 REPORT STATUS: Signed EXAMINATION: CHEST 2 VIEWS INDICATION: Pre-operative COMPARISON: None FINDINGS: LINES/TUBES:None LUNGS:The lungs are well-inflated. No focal consolidation or pulmonary edema. PLEURA:No pleural effusion or pneumothorax. MEDIASTINUM:The cardiomediastinal silhouette appears normal in size and shape. BONES/SOFT TISSUES:No acute osseous injury. Degenerative changes of the thoracic spine. ABDOMEN:No free air under the diaphragm. IMPRESSION: No focal pneumonia or pulmonary edema. Signed by: Nola Gaston MD on 05/28/2019 3:10 PM Dictated By: NOLA GASTON MD 151 Transcribed By: PARVEEN on 05/28/191509 COPY TO: ELIDA MEZA MD
[2019-05-29 10:20] VITALS: BP 126/88
--- NOTE | 2019-05-30 13:14 | Operative Report ---
DATE OF PROCEDURE: 05/29/2019 SURGEON: Maurice Tirado MD PREOPERATIVE DIAGNOSIS: Left long finger trigger. POSTOPERATIVE DIAGNOSIS: Left long finger trigger. OPERATIONS AND PROCEDURE PERFORMED: 1. The patient underwent a release of the left A1 lila procedure. 2. Release of the A2 lila for the left long finger. AIRCRAFT POWERPLANT REPAIRER: Allyn Zamora. ANESTHESIA: General endotracheal intubation anesthesia. IV FLUIDS: Per the anesthesia record. BRIEF DISCUSSION OF THE PATIENT'S OPERATIVE PROCEDURE: Ms. Unger was taken to the operating room and placed in the supine position on the operating room table. Following induction of general anesthesia as well as endotracheal intubation, the patient's left upper extremity was examined under anesthesia. She was found to have her long finger fully flexed into the palm of her hand. With gentle manipulation, the finger was straightened and a popping sensation was felt in the palm of the hand to the level of the A1 lila. The patient's upper extremity was then prepped and draped in standard surgical fashion. The case was begun by creating an incision over the A1 lila in the palm of the hand in line with the long finger. This incision was carried through skin only. Blunt dissection was used to deepen the incision and the A1 lila was easily identified. The A1 lila was then released in its entirety. Examination of the flexor tendon demonstrated nodular tenosynovitis. Flexion of the finger demonstrated marked improvement of its mobility. However, there was further catching of the tendon. Palpation of the finger demonstrated a 2nd nodule at the level of the A2 lila. An incision was created over the A2 lila. This incision again was carried through the skin. Blunt dissection was used to deepen the incision to the level of the A2 lila. The distal edge of the A2 lila was easily identified and the A2 lila was then opened. Motion of the finger at this time demonstrated no further catching or locking of the finger. Both wounds were copiously irrigated. They were closed in a single layer fashion. Sterile dressings were applied and the patient was then awakened and taken to the postanesthesia care unit in stable condition. Allyn Zamora acted as assistant sales director for this case and was necessary for the prepping and draping the patient as well as retraction of soft tissues that allowed this case to be successful. MD DARLING Grigsby/YOU /[id number]
== END | disposition home or self-care (01) ==
LOC: OR 06:12
PROVIDERS: ATTEND Specialist
DX: M65.332 Trigger finger, left middle finger (principal); E11.9 Type 2 diabetes mellitus without complications; I10 Essential (primary) hypertension; E78.5 Hyperlipidemia, unspecified; J45.909 Unspecified asthma, uncomplicated; E03.9 Hypothyroidism, unspecified; K21.9 Gastro-esophageal reflux disease without esophagitis; K44.9 Diaphragmatic hernia without obstruction or gangrene; Z01.812 Encounter for preprocedural laboratory examination; Z01.818 Encounter for other preprocedural examination; Z79.02 Long term (current) use of antithrombotics/antiplatelets; Z79.84 Long term (current) use of oral hypoglycemic drugs; Z68.34 Body mass index [BMI] 34.0-34.9, adult
CPT/HCPCS: 26055; 36415 ×2; 71046; 80048; 82948; 85025; J0690; J1100; J2001; J2250; J2405; J2704; J3010